=== PATIENT | male | born 1960 | race Caucasian/White ===

== ENCOUNTER 2017-05-31 15:02 | Emergency (ER) | payer BC ==
--- NOTE | 2017-05-31 16:08 | EDM.PDOC ---
[id number]: COUGH,CONGESTION,FEVER Time Seen by Provider: 05/31/17 15:39 Source of Information: Reports: Patient History Limitations: Reports: No Limitations - History of Present Illness INITIAL COMMENTS - FREE TEXT/NARRATIVE: The patient is a 57-year-old male with a remote history of tobacco abuse who comes in with a chief complaint of cough. The patient states he's had a cough for 7 weeks. He was initially treated with an antibiotic and steroids by primary care provider. He then continued to cough and was treated with a second round of antibiotics and steroids. He comes in today because he's feeling even worse. States that he's never felt back to normal but he's felt significantly worse the last few days. He now has very thick nasal drainage. He has subjective and fevers, MAXIMUM TEMPERATURE at home 99.5. Feels very tired and weak. Continues to have a dry cough. Some shortness of breath associated with coughing. No chest pain. No vomiting. No ill contacts. States that he has a lung nodule that he is aware of and actually had a PET scan today completed at an outside institution. He doesn't have that result yet. He states that he's had chest CT scans previously but not anything in the last year or 2. Has also been using albuterol, not clear if this is been helpful. Generalized Pain Score (Numeric/FACES): 5 - Related Data Allergies Allergy/AdvReac Type Severity Reaction Status Date / Time No Known Allergies Allergy Verified 06/05/16 13:12 Home Meds: Home Meds Naproxen Sodium [Aleve] 220 mg PO Q6H PRN 06/05/16 [History] Past Medical History HEENT History: Reports: Hard of Hearing, Impaired Vision Respiratory History: Reports: Bronchitis, Recurrent, Intubation, Previous Other Respiratory History: Surgical intubation Gastrointestinal History: Reports: Hemorrhoids, Other (See Below) Other Gastrointestinal History: Reflux Genitourinary History: Reports: Renal Calculus Musculoskeletal History: Reports: Back Pain, Chronic Other Musculoskeletal History: 11/15/2004 Broke back, Neurological History: Reports: Other (See Below) Other Neuro History: Episode 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 Psychiatric History: Reports: ADHD, Other (See Below) Other Psychiatric History: ADHD as kid Dermatologic History: Reports: None - Infectious Disease History Infectious Disease History: Reports: Chicken Pox, Measles, Mumps - Past Surgical History HEENT Surgical History: Reports: Tonsillectomy, Other (See Below) GI Surgical History: Reports: Cholecystectomy, Hernia Repair/Other Musculoskeletal Surgical History: Reports: Arthroscopic Knee, Other (See Below) Social & Family History - Family History HEENT: Reports: Cataract, Glaucoma, Hearing Impairment Other HEENT Family History: dementia, Alzheimers mother. Cardiac: Reports: Stent Musculoskeletal: Reports: Arthritis Neurological: Reports: Alzheimers Disease, Dementia Psychiatric: Reports: Depression Oncologic: Reports: Breast, Skin Other Oncologic Family History: Dad - spinal - Tobacco Use Smoking Status *Q: Never Smoker Years of Tobacco use: 20 Packs/Tins Daily: 1 Used Tobacco, but Quit: Yes Month Tobacco Last Used: 05/2011 Second Hand Smoke Exposure: Yes - Alcohol Use Days Per Week of Alcohol Use: 2 Number of Drinks Per Day: 1 Total Drinks Per Week: 2 - Recreational Drug Use Recreational Drug Use: No ED ROS GENERAL - Review of Systems Review Of Systems: See Below Constitutional: Reports: Fever, Chills, Weakness HEENT: Reports: No Symptoms Respiratory: Reports: Shortness of Breath, Cough Cardiovascular: Denies: Chest Pain Endocrine: Reports: No Symptoms GI/Abdominal: Reports: No Symptoms Musculoskeletal: Reports: No Symptoms ED EXAM, GENERAL - Physical Exam Exam: See Below Exam Limited By: No Limitations General Appearance: Alert, WD/WN, No Apparent Distress Ears: Normal External Exam Nose: Nasal Drainage Throat/Mouth: Normal Inspection, Normal Oropharynx, Normal Voice, No Airway Compromise Head: Atraumatic, Normocephalic Neck: Normal Inspection, Supple, Non-Tender, Full Range of Motion Respiratory/Chest: No Respiratory Distress, Lungs Clear, Normal Breath Sounds, No Accessory Muscle Use, Other (+ dry cough) Cardiovascular: Normal Peripheral Pulses, Regular Rate, Rhythm, No Murmur, No Rub GI/Abdominal: Soft, Non-Tender, No Distention. No: Guarding Neurological: Alert, Oriented, Normal Cognition Psychiatric: Normal Affect, Normal Mood Skin Exam: Warm, Dry, Intact, Normal Color, No Rash Course - Vital Signs Last Recorded V/S: Last Vital Signs Temp 37.1 C 05/31/17 15:12 Pulse 89 05/31/17 19:38 Resp 18 05/31/17 19:38 BP 128/64 05/31/17 19:38 Pulse Ox 98 05/31/17 19:38 - Orders/Labs/Meds Labs: Laboratory Tests 05/31/17 05/31/17 Range/Units 16:25 16:25 WBC 8.36 (4.23-9.07) K/mm3 RBC 4.37 L (4.63-6.08) M/mm3 Hgb 13.5 L (13.7-17.5) gm/L Hct 40.2 (40.1-51.0) % MCV 92.0 (79.0-92.2) fl MCH 30.9 (25.7-32.2) pg MCHC 33.6 (32.2-35.5) g/dl RDW Std Deviation 44.1 H (35.1-43.9) fL Plt Count 166 (163-337) K/mm3 MPV 11.4 (9.4-12.3) fl Neut % (Auto) 62.9 (34.0-67.9) % Lymph % (Auto) 22.2 (21.8-53.1) % Holt % (Auto) 10.8 (5.3-12.2) % Eos % (Auto) 3.9 (0.8-7.0) Baso % (Auto) 0.1 (0.1-1.2) % Neut # (Auto) 5.25 (1.78-5.38) K/mm3 Lymph # (Auto) 1.86 (1.32-3.57) K/mm3 Holt # (Auto) 0.90 H (0.30-0.82) K/mm3 Eos # (Auto) 0.33 (0.04-0.54) K/mm3 Baso # (Auto) 0.01 (0.01-0.08) K/mm3 Sodium 140 (136-145) mEq/L Potassium 4.1 (3.5-5.1) mEq/L Chloride 107 (98-107) mEq/L Carbon Dioxide 27 (21-32) mEq/L Anion Gap 10.1 (5-15) BUN 13 (7-18) mg/dL Creatinine 1.0 (0.7-1.3) mg/dL Est Cr Clr Drug Dosing 82.48 mL/min Estimated GFR (MDRD) > 60 (>60) mL/min BUN/Creatinine Ratio 13.0 L (14-18) Glucose 105 (74-106) mg/dL Calcium 9.1 (8.5-10.1) mg/dL Total Bilirubin < 0.1 L (0.2-1.0) mg/dL AST 21 (15-37) U/L ALT 28 (16-63) U/L Alkaline Phosphatase 53 (46-116) U/L Troponin I < 0.017 (0.00-0.056) ng/mL Total Protein 7.5 (6.4-8.2) g/dl Albumin 3.6 (3.4-5.0) g/dl Globulin 3.9 gm/dL Albumin/Globulin Ratio 0.9 L (1-2) Meds: Medications Discontinued Medications Generic Name Dose Route Start Last Admin Trade Name Freq PRN Reason Stop Dose Admin Sodium Chloride 100 mls @ 60 mls/hr 05/31/17 18:15 05/31/17 18:20 Normal Saline IV 60 mls/hr ASDIRECTED MOOSE Administration Iopamidol 100 ml 05/31/17 18:05 05/31/17 18:19 Isovue-370 (76%) IVPUSH 05/31/17 18:06 100 ml ONETIME ONE Administration Sodium Chloride 10 ml 05/31/17 18:05 05/31/17 18:19 Saline Flush FLUSH 05/31/17 18:06 10 ml ONETIME ONE Administration - Re-Assessments/Exams Free Text/Narrative Re-Assessment/Exam: 05/31/17 16:16 EKG shows normal sinus rhythm with a rate of 76, normal intervals, subtle ST depression in the lateral leads less than 1 mm with no reciprocal changes, no ST elevation. 05/31/17 19:11 CXR shows no infiltrate. Labs unremarkable. CTA chest shows possible small lingular pneumonia. Patient has no fever, normal WBC, no left shift, and a clinical syndrome that is consistent with viral syndrome. He has had two rounds of antibiotics. It is not clear if this possible pna is residual or new since time of most recent abx. I discussed risks/benefits of another round of abx with patient and he would prefer to wait to see if his symptoms improve or worsen. Discussed strict return precautions. I suspect that he had bronchitis/ possible pna earlier in the course of this cough illness, and this week his symptoms are much more c/w viral illness with more nasal congestion, mild sore throat, and ongoing cough without fever. We discussed this at length. He does have a PCP appointment scheduled for in 4 days. We also discussed his multiple pulmonary nodules. He had a PET scan today in [place]. He will further discuss at his f/u appointment next week with his PCP. 06/01/17 19:35 Departure - Departure Time of Disposition: 19:20 Disposition: Home, Self-Care 01 Clinical Impression: Cough, Shortness of breath, Pulmonary nodule - Discharge Information Instructions: Shortness of Breath, [id number], Cough, Adult, [id number], Pulmonary Nodule, [id number] Referrals: Sabra James, DO [Primary Care Provider] - Forms: ED Department Discharge Additional Instructions: 1. Continue over the counter cough and cold medication as needed for cough and congestion 2. Follow up with Dr. James next week as planned 3. Return to the Emergency Department if you have worsening shortness of breath , chest pain, fever of 101 or higher, or any other concerning symptoms
--- NOTE | 2017-05-31 16:50 | CR ---
Chest: Two views of the chest were obtained. Comparison: Previous chest x-ray of 06/05/16. Heart size is within normal limits. Mild tortuosity of the thoracic aorta is seen. Lungs are clear. Bony structures show minimal anterior wedge deformity within the midthoracic spine which is likely old. Several surgical clips are seen within the upper right abdomen. Impression: 1. Nothing acute is identified on two-view chest x-ray. Diagnostic code #2
[2017-05-31] MEDS ORDERED: Iopamidol 755 Mg/ML 100 ML Bottle IVPUSH ONE (18:05)
[2017-05-31] MEDS ORDERED: Sodium Chloride 0.9% 10 ML Syringe FLUSH ONE (18:05)
[2017-05-31] MEDS ORDERED: Sodium Chloride 0.9% 100 ML IV SCH (18:15)
[2017-05-31 19:43] VITALS: BP 128/64
--- NOTE | 2017-06-01 11:49 | CT ---
CT chest Technique: Multiple axial sections through the chest were obtained. Intravenous contrast was utilized. Study has been performed as a pulmonary angiogram protocol. Findings: Pulmonary arteries are well opacified. No filling defects are seen to indicate pulmonary embolism. Small mediastinal lymph nodes are seen which are felt to be within normal limits. No pericardial thickening is seen. Small portion of the visualized lung bases are clear. Surgical clips are seen from prior cholecystectomy. Dominant nodule is identified within the within the right middle lobe measuring 1.4 cm. Other smaller subpleural nodules seen within the right middle lobe. Slight increased density within the lingula is seen. Lungs otherwise are clear. Ectatic descending aorta is seen measuring 4.2 cm. Slight degenerative change is scattered within the spine. Impression: 1. Dominant nodule felt to be within the right middle lobe measuring 1.4 cm. Other smaller subpleural nodules are seen. If patient is not a smoker, recommend follow-up study in 6 months. This can be performed without contrast. If patient is a smoker, follow-up study then recommended in [address] guided biopsy performed. 2. No findings of pulmonary embolism. 3. Minimal ground-glass appearance within the lingula possibly due to minimal pneumonia or fibrosis. 4. Other incidental findings. Diagnostic code #9 I agree with preliminary report issued by [facility] ([facility] report finalized on 05/31/17, 8:15 PM Central Time)
== END 2017-05-31 19:37 | disposition home or self-care (01) ==
LOC: JD.ED 15:02
DX: R06.02 Shortness of breath (principal); R91.1 Solitary pulmonary nodule; Z87.442 Personal history of urinary calculi; Z90.49 Acquired absence of other specified parts of digestive tract; Z98.890 Other specified postprocedural states; Z87.891 Personal history of nicotine dependence
CPT/HCPCS: 36415; 71020; 71275; 80053; 84484; 85025; 87040; 93005; 99284; J7030; J7050; Q9967